=== PATIENT | male | born 1965 | race Caucasian/White ===

== ENCOUNTER 2022-04-27 07:09 | Day surgery (SDC) | payer BC ==
[2022-04-26 14:28] LABS: Absolute Lymphocytes (CBC) 2.1 K/uL (0.7-4.9); Hematocrit 46.3 % (39.6-49.0); Lymphocytes % 44.1 % (15.3-44.8); MCV 90.5 fL (80-100); MPV 7.7 fL (7.6-11.3); RBC Red Blood Cell Count 5.12 M/uL (4.33-5.43)
[2022-04-26 14:38] LABS: Potassium 4.1 mmol/L (3.5-5.1)
[2022-04-27] MEDS ORDERED: SODIUM HYPOCHLORITE 0.25% 473 ML ONE (07:19)
[2022-04-27] MEDS ORDERED: BUPIVACAINE 0.25% PF 30 ML VIAL ONE (07:19)
[2022-04-27] MEDS ORDERED: LIDOCAINE 1% MPF 30 ML VIAL ONE (07:19)
[2022-04-27] MEDS ORDERED: propofoL 200 MG/20 ML VIAL IV ONE (07:20)
[2022-04-27] MEDS ORDERED: LIDOCAINE 2% MPF 5 ML VIAL ONE (07:21)
[2022-04-27] MEDS ORDERED: Ringers Lactate 1,000 ML IV ONE (07:21)
[2022-04-27] MEDS ORDERED: FENTANYL CITR 100 MCG/2 ML ONE (07:21)
[2022-04-27] MEDS ORDERED: ONDANSETRON 4 MG/2 ML VIAL ONE ×2 (07:21→10:02)
[2022-04-27] MEDS ORDERED: KETOROLAC 30 MG/ML INJ ONE (07:21)
[2022-04-27] MEDS ORDERED: CEFAZOLIN SODIUM 2 GM/VIAL ONE (07:21)
[2022-04-27] MEDS ORDERED: MIDAZOLAM HCL 2 MG/2 ML INJ ONE (07:21)
[2022-04-27] MEDS ORDERED: dexAMETHasone 4 MG/ML VIAL ONE (07:21)
[2022-04-27] MEDS ORDERED: NS 0.9% VIAL 20 ML ONE (07:56)
--- NOTE | 2022-04-27 08:31 | P.OP ---
Preoperative diagnosis: Right Axillary Mass Postoperative diagnosis: Right Axillary Mass Primary procedure: Excision of Right Axillary Mass Anesthesia: GETA + Local Estimated blood loss: <15cc Specimen: Axillary Mass, Abnormal tissue possible lymph node Findings: firm axillary tissue, abnormal tissue - removed Complications: None Transferred to: Recovery Room Condition: Good
[2022-04-27] MEDS: HYDROMORPHONE HCL 1 MG/ML INJ ONE ×2 (09:09→09:15)
[2022-04-27] MEDS ORDERED: HYDROCODONE/APAP 10/325 TAB ONE (10:51)
--- NOTE | 2022-04-27 12:20 | OP ---
Date of Procedure: 04/27/2022 Surgeon: Riley Parsons MD, Preoperative Diagnosis: Right axillary mass. Preoperative Diagnosis: Right axillary mass. Procedure Performed: Excisional biopsy of right axillary mass. Anesthesia: General endotracheal plus local with 1% lidocaine with epinephrine. Estimated Blood Loss: Less than 50 cc. Specimen: 1.Axillary mass and subcutaneous tissues. 2.Abnormal extension of tissue extending to what appeared to be lymph node. Findings: 1.Firm axillary tissue excised as a specimen. 2.Abnormal tissue removed consistent with a lymph node with reactive changes or abnormal appearance. Complications: None. Disposition: The patient was transferred to the recovery room in good condition. Procedure In Detail: After informed consent was obtained, the patient was brought to the operating r oom, prepped and draped in the usual sterile fashion after adequate anesthesia was achieved. I made a linear incision in the right axillary crease. I dissected down to subcutaneous tissue using electr ocautery. I then palpated the area and found firm adipose tissue in the area, which I circumferentia lly dissected out and removed and sent off for pathologic examination. This was approximately 0.5 cm circumferentially round, firm, adipose appearing tissue. This was sent off for pathologic examinati on. I then inspected the axillary contents and noted there to be an area of cheeselike material exte nding from the posterior aspect of the adipose tissue down to what appeared to be the lymph node nikita n. I circumferentially dissected out an area of suspicious lymph node/abnormal appearing tissue. Th is was circumferentially dissected free and sent off for pathologic examination. I placed clips, fid ucial markers in the what appeared to be lymphatic channels of feeding this apparent lymph node. I t hen irrigated the area. I used minimal electrocautery down to 20 on the electrocautery device. No t witches were appreciated throughout the procedure. Therefore, no nerves were visualized and the axil jonny vein was not visualized. I stayed out of the clavipectoral fascia and away from any anatomic ar eas of concern with respect to motor nerves in the axillary contents. After this was irrigated copio usly, the area was inspected for hemostasis. No additional hemostatic maneuvers were required. Clip s were found to be in good position without any additional bleeding. I then closed the deep dermal p javier using interrupted 3-0 Vicryl suture and the skin was closed with a 4-0 Monocryl in a running fas hion. Dermabond placed over top. The patient tolerated the procedure well without evidence of compl ication and transferred to PACU in good condition. All counts were correct at the end of the case. ELYSE/CRISTINA Voice ID: [id number] Report ID: [id number]
--- NOTE | 2022-04-27 13:08 | EKG ---
Test Date: 2022-04-26 Test Time: 13:43:32 Final Inspector: KELLY MEASUREMENT RESULTS: Intervals: Rate: 72 TN: 170 QRSD: 78 QT: 364 QTc: 398 Hamel: P: 50 TN: 170 QRS: 23 T: 53 INTERPRETIVE STATEMENTS: Normal sinus rhythm Low voltage QRS Borderline ECG No previous ECG available for comparison Electronically Signed On 04-27-22 13:06:51 CDT by Ousmane Payne
[2022-04-27 15:34] VITALS: BP 126/77; TEMP 96.9; O2SAT 97
== END 2022-04-27 11:09 | disposition home or self-care (01) ==
LOC: OR 07:09
PROVIDERS: ATTEND Surgery
PROC: 0JBD0ZZ Excision of Right Upper Arm Subcutaneous Tissue and Fascia, Open Approach (ICD-10-PCS; principal; 2022-04-27 08:00)
DX: L92.3 Foreign body granuloma of the skin and subcutaneous tissue (principal)
CPT/HCPCS: 93005; 85025; 80048; 36415; 88304; 11404; J2704; J1100; J2001; J2250; J3010; A4216; J1170; J7120; J2405 ×2; 88305